=== PATIENT | female | born 1940 | race Caucasian/White ===

== ENCOUNTER 2020-01-28 08:48 | Outpatient (CLI) | payer MEDICARE, SELFPAY ==
--- NOTE | ~2020-01-28 | MR_ITS ---
EXAMINATION: MR cervical spine wo con EXAM DATE: 01/28/2020 10:15 INDICATION: Cervical myelopathy. TECHNIQUE: Multi-sequential, multiplanar MR images of the cervical spine were obtained without contra st. Axial T2, axial T2 MERGE sequence. Sagittal T1, T2, T2 fat saturation images also obtained. Th ere is no prior study for comparison. FINDINGS: There is moderate to severe disc disease C5-6 and 6-7, moderate at C4-5 and otherwise mild to moderate disc disease. There is 2 mm anterolisthesis C7 on T1. The vertebral bodies are otherwise aligned. The spinal cord signal intensity and intrinsic morphology is normal. Cervicomedullary junct ion is normal in appearance. There are no suspicious marrow signal abnormalities. Paraspinal soft tis fady is unremarkable. Level by level evaluation: C2-C3: Disc does not extend beyond the endplate margin. Uncovertebral joint arthropathy: None. Facet joint arthropathy: Moderate left, mild right. Neural foraminal stenosis: No stenosis. Central canal stenosis: No stenosis. C3-C4: There is a minimal diffuse disc bulge. Uncovertebral joint arthropathy: Moderate left, mild right. Facet joint arthropathy: Mild bilateral. Neural foraminal stenosis: No stenosis. Central canal stenosis: No stenosis. C4-C5: There is a mild diffuse disc bulge. Uncovertebral joint arthropathy: Mild to moderate bilateral. Facet joint arthropathy: Moderate right, mild to moderate left. Neural foraminal stenosis: Minimal right. Central canal stenosis: Mild. C5-C6: There is a mild to moderate diffuse disc bulge. Uncovertebral joint arthropathy: Moderate to severe bilateral. Facet joint arthropathy: Mild to moderate bilateral. Neural foraminal stenosis: Moderate to severe bilateral. Central canal stenosis: Mild to moderate . Central canal measures 6-7 mm in mid sagittal AP diameter . C6-C7: There is a mild to moderate diffuse disc bulge. Uncovertebral joint arthropathy: Moderate to severe bilateral. Facet joint arthropathy: Mild to moderate bilateral. Neural foraminal stenosis: Moderate bilateral. Central canal stenosis: Mild to moderate . Central canal measures 6 mm in mid sagittal AP diameter . C7-T1: There is a mild diffuse disc bulge. Uncovertebral joint arthropathy: Moderate bilateral. Facet joint arthropathy: Moderate bilateral. Neural foraminal stenosis: Mild right. Central canal stenosis: Mild. IMPRESSION: 1. Advanced mid cervical spondylosis. Reviewed, dictated and finalized at location B.
== END 2020-01-28 08:49 | disposition home or self-care (01) ==
PROVIDERS: PCP Internal Medicine; Visit Provider Psychiatry & Neurology Neurology
DX: G95.9 Disease of spinal cord, unspecified (principal); M47.892 Other spondylosis, cervical region
CPT/HCPCS: 72141

== ENCOUNTER 2022-03-01 17:32 | Emergency (ER) | payer MEDICARE, SELFPAY ==
--- NOTE | ~2022-03-01 | XR_ITS ---
EXAM: XR knee LT min 4V DATE: 03/01/2022 19:26 HISTORY: fall TODAY, left knee pain, NON-WEIGHT BEARING . COMPARISON: None available. FINDINGS: Decreased mineralization. Obliquely oriented lucency in the medial aspect of the medial ti bial plateau. No lytic or blastic lesion. Mild tricompartment osteoarthritic change. Patellar tendon enthesopathy No erosion or periosteal change. Vascular calcifications. Large joint effusion. IMPRESSION: Nondisplaced medial tibial plateau fracture. Reviewed, dictated and finalized at location K. R [employer] TECHNICIAN
[2022-03-01 18:57] VITALS: BP 122/43; PULSE 73; RESP 14; TEMP 37.1; O2SAT 97
--- NOTE | 2022-03-01 20:27 | ED.FALL ---
HPI - Fall General Chief Complaint: Fall Stated Complaint: fall with left knee pain - patient is covid + Time Seen by Provider: 03/01/22 20:18 History of Present Illness HPI Narrative: 81-year-old female presenting to the emergency department for evaluation after having an injury to her left knee. Patient reports she had a mechanical fall earlier resulting in injury to her knee. Patient did also test positive for COVID. Patient denies striking head denies loss of consciousness. Patient has a past medical history of gait instability and does use a walker at home. Review of Systems Review of Systems: CONSTITUTIONAL: Denies fever, chills, or sweats. EYES: Denies visual changes, redness, or discharge. ENT: Denies rhinorrhea, congestion, sore throat, or otalgia. CARDIOVASCULAR: Denies chest pain, palpitations, or edema. RESPIRATORY: Denies cough or dyspnea. GASTROINTESTINAL: Denies abdominal pain, nausea, vomiting, or diarrhea. GENITOURINARY: Denies dysuria or hematuria. SKIN: Denies rash or itching. MUSCULOSKELETAL: Left knee pain NEUROLOGIC: Denies headache, numbness, or weakness. PSYCHIATRIC: Denies anxiety or depression. Exam Narrative: APPEARANCE: Well appearing, no pain, no distress, well-nourished. HEAD: normocephalic, atraumatic. EYES: PERRLA/EOMI, conjunctivae clear. NOSE: Normal no drainage NECK: Supple. No adenopathy, no masses. RESPIRATORY: Airway patent, respirations nonlabored. Clear to auscultation bilaterally, no rales, rhonchi, wheezing. CARDIOVASCULAR: Regular rate and rhythm without murmurs rubs or gallops. ABDOMINAL: Soft, nontender, nondistended, normal bowel sounds MUSCULOSKELETAL: Moves all extremities. No tenderness to femur or tib-fib. Mild tenderness to left knee. No deformity. NEURO: Alert. Cranial nerves II through XII intact. Grossly intact SKIN: Warm, dry. Normal Color Course Course Emergency Course: Case was discussed with orthopedics, Dr. Luna and he was comfortable with the plan for placing the patient in a knee immobilizer and allowing her to do limited weightbearing while using a walker. Patient and family are comfortable with this plan. All questions and concerns were addressed. Vital Signs Vital signs: Vital Signs Temperature 98.8 F 03/01/22 18:57 Pulse Rate 73 03/01/22 18:57 Respiratory Rate 14 03/01/22 18:57 Blood Pressure 122/43 L 03/01/22 18:57 Pulse Oximetry 97 03/01/22 18:57 Oxygen Delivery Room Air 03/01/22 18:57 Temperature 98.8 F 03/01/22 18:57 Pulse Rate 73 03/01/22 18:57 Respiratory Rate 14 03/01/22 18:57 Blood Pressure 122/43 L 03/01/22 18:57 Pulse Oximetry 97 03/01/22 18:57 Oxygen Delivery Room Air 03/01/22 18:57 MDM - Fall Imaging Data Radiologist's impression: Impressions Knee X-Ray 03/01/22 19:46 IMPRESSION: Nondisplaced medial tibial plateau fracture. Discharge Plan Discharge Clinical Impression: Fracture of tibial plateau Qualifiers: Encounter type: initial encounter Fracture type: closed Laterality: right Qualified Code(s): S82.141A - Displaced bicondylar fracture of right tibia, initial encounter for closed fracture Patient Disposition: Home, Self-Care Condition: Stable Instructions: Antibiotic Form, Leg Fracture in Children (ED), Knee Immobilizer (ED) Additional Instructions: Knee immobilizer as directed. Walker for limited weightbearing. have close follow-up with orthopedics. Follow-up/Referrals: Aguilar,MD Rashel [Primary Care Provider] - Dann Dwyer MD [Physician] -
== END 2022-03-01 21:00 | disposition home or self-care (01) ==
LOC: ANHED 21:08
PROVIDERS: Emergency Provider Emergency Medicine; PCP Internal Medicine
DX: S82.145A Nondisplaced bicondylar fracture of left tibia, initial encounter for closed fracture (principal)
CPT/HCPCS: 73564; 99284

== ENCOUNTER 2023-06-07 20:48 | Emergency (ER) | payer MEDICARE, SELFPAY ==
--- NOTE | ~2023-06-07 | CT_ITS ---
Non-contrast CT scan of the Abdomen and Pelvis Clinical indication: Pain Technique: 2.5 mm axial scans were obtained through the abdomen and pelvis without intravenous or or al contrast. Dose reduction technique was used on this scan by utilizing automated exposure control a nd iterative reconstruction technique. The dose-length product (DLP) was 491.02 mGy-cm. Findings: Images through the lung bases reveal 2 adjacent 4 mm right middle lobe pulmonary nodules ( axial images 14, 18). There are focal groundglass nodules or opacities in the visualized right lower lobe (axial images 1, 4).. There is no evidence of renal or ureteral calculi. The kidneys and the ureters are nondilated. Small left hepatic lobe cyst present. Calcified gallstone present. The spleen, pancreas, and adrenals appear normal. There are atherosclerotic calcifications of the aorta. There is no evidence of bowel obstruction. Images through the pelvis were performed. There is no evidence of ascites or lymphadenopathy. Urinary bladder unremarkable. No pelvic mass seen. No ascites. Impression fracture of L3 and L4 noted, age-indeterminate. Probable mild compression deformity of T10 , likely chronic. Impression: No renal, ureteral, or bladder stone. No hydronephrosis. Compression fractures in the spine, as above. Cholelithiasis. Small right basilar pulmonary nodules, as detailed above. According to Fleischner Society criteria, f or a low-risk patient, no further follow-up required. For a high-risk patient, consider 12 month foll ow-up CT. Reviewed, dictated and finalized at location . [employer] Impression fracture of L3 and L4 noted, age-indeterminate. Probable mild compre ssion deformity of T10, likely chronic. Impression: No renal, ureteral, or bladder stone. No hydronephrosis. Compression fractures in the spine, as above. Cholelithiasis. Small right basilar pulmonary nodules, as detailed above. According to Fleischn er Society criteria, for a low-risk patient, no further follow-up required. For a high-risk patient, consider 12 month follow-up CT.
[2023-06-07 20:51] VITALS: BP 172/55; PULSE 70; RESP 14; TEMP 36.2; O2SAT 100
[2023-06-07 22:14] LABS: Basophils Absolute Auto 0.1 K/mm3 (0.0-0.1); Basophils Percent Auto 0.7 % (0.2-1.2); Eosinophils Absolute Auto 0.2 K/mm3 (0-0.3); Eosinophils Percent Auto 2.8 % (0-4.4); Hematocrit 38.6 % (37.0-47.0); Hemoglobin 12.9 g/dL (12.0-15.0); Immature Granulocyte Absolute 0.01 K/mm3 (0.00-0.031); Immature Granulocyte Percent A 0.1 % (0-0.5); Lymphocytes Absolute Auto 1.69 K/mm3 (0.9-3.2); Lymphocytes Percent Auto 22.6 % (18.3-44.2); Mean Corpuscular HGB Conc 33.4 g/dl (32-36); Mean Corpuscular Hemoglobin 32.1 pg (26-34); Mean Platelet Volume 9.9 fl (7.4-10.4); Monocytes Absolute Auto 0.6 K/mm3 (0.1-0.6); Monocytes Percent Auto 7.8 % (2.6-8.5); Neutrophils Absolute Auto 4.9 K/mm3 (1.3-6.7); Platelet Count Result 234 k/mm3 (150-375); Red Blood Count 4.02 M/mm3 (4.2-5.4); Red Cell Distribution Width 12.3 % (11.5-14.5); White Blood Count 7.5 K/mm3 (4.5-10.0)
[2023-06-07 22:24] LABS: Alanine Aminotransferase 22 U/L (6-35); Albumin Level 3.9 g/dL (3.5-5.1); Alkaline Phosphatase 86 U/L (38-126); Anion Gap 7 mmol/L (8-16); Aspartate Amino Transferase 33 U/L (14-36); Bilirubin,Total 0.4 mg/dL (0.2-1.3); Blood Urea Nitrogen 19 mg/dL (7-17); Calcium 9.5 mg/dL (8.4-10.2); Carbon Dioxide 29 mmol/L (22-30); Chloride 103 mmol/L (98-107); Estimated CRCL calculation 49 ml/min; Estimated Glomerular Filt Rate > 60; Glucose 114 mg/dL (65-110); Magnesium 2.1 mg/dL (1.6-2.3); Potassium 3.7 mmol/L (3.4-5.0); Sodium 139 mmol/L (137-145)
[2023-06-07 22:25] LABS: Lactic Acid Reflex 1.4 mmol/L (0.7-2.0)
--- NOTE | 2023-06-07 23:16 | ED.GENADULT ---
HPI - General Adult General Chief complaint: Back Pain/Injury Stated complaint: back pain Time Seen by Provider: 06/07/23 23:08 Source: patient Mode of arrival: ambulatory Limitations: no limitations History of Present Illness HPI narrative: This is a 83 year old female who presents to the ED with chief complaint of right lower back pain beginning rather suddenly earlier this evening. Patient states that she was just sitting in her chair when she noticed some pain, across the lower back and radiate into the abdomen. When asked about the location she reports all across the lower lumbar area. She does note that it seems to be worse on the right. States that the pain has largely subsided since initial onset. Denies any fall, trauma or known injury. Does report history degeneration of the L-spine but has not had any recent problems with her back. Denies nausea, vomiting, fevers, chills numbness, weakness. Denies any bowel or bladder dysfunction. Related Data Allergies Allergy/AdvReac Type Severity Reaction Status Date / Time No Known Allergies Allergy Verified 06/07/23 20:53 Review of Systems Review of Systems: All systems as dictated in HPI Exam Narrative: GENERAL: Well-appearing, well-nourished, and in no acute distress. HEAD: Normocephalic, atraumatic. EYES: PERRLA and EOMI. ENT: Nares clear, no rhinorrhea or epistaxis. Mucous membranes moist. Oropharynx without tonsillar hypertrophy exudate or other lesions. NECK: Supple. No adenopathy or masses. CHEST: No respiratory distress. Clear to auscultation. No wheezes rales or rhonchi HEART: Regular rate and rhythm. No murmur heard. Normal peripheral pulses. ABDOMEN: Negative CVA tenderness bilaterally. soft, grossly nontender, nondistended, normal active bowel sounds. MSK: Focal tenderness to the lumbar paraspinal muscles on the right. No midline spinal tenderness. No SI joint tenderness. Ambulating with Rollator at baseline. normal range of motion. No edema. SKIN: Warm, dry, no rash. NEURO: Alert and oriented x3. No focal deficits. PSYCH: Normal mood and affect. Course Vital Signs Vital signs: Vital Signs Temperature 97.1 F L 06/07/23 20:51 Pulse Rate 70 06/07/23 20:51 Respiratory Rate 14 06/07/23 20:51 Blood Pressure 172/55 H 06/07/23 20:51 Pulse Oximetry 100 06/07/23 20:51 Oxygen Delivery Room Air 06/07/23 20:51 Temperature 97.1 F L 06/07/23 20:51 Pulse Rate 70 06/07/23 20:51 Respiratory Rate 14 06/07/23 20:51 Blood Pressure 172/55 H 06/07/23 20:51 Pulse Oximetry 100 06/07/23 20:51 Oxygen Delivery Room Air 06/07/23 20:51 Medical Decision Making MDM Narrative Medical decision making narrative: This is a 83-year-old female who presents to the ED with chief complaint of right lower back pain sudden onset tonight. There was some radiation of pain into the abdomen. Vitals are normal. Exam today reveals right lower lumbar paraspinal tenderness. There is minimal CVA tenderness. Lab work grossly unremarkable. There is evidence of acute UTI with nitrite positive urine, also showing 3+ leuks, greater than 100 wbc's, 4+ bacteria. With the questionable flank pain CT scan was ordered to rule out stone. No acute findings on the CT abdomen and pelvis without contrast. Patient feels rather asymptomatic here. She did note some dysuria before she was discharged. Prescription for cephalexin given. Follow-up with PCP. Pt will be discharged in stable condition. Return precautions given and supportive measures discussed. Pt is understanding and agreeable with plan for discharge and follow-up with PCP. Vital Signs Vital Signs: Vital Signs Temperature 97.1 F L 06/07/23 20:51 Pulse Rate 70 06/07/23 20:51 Respiratory Rate 14 06/07/23 20:51 Blood Pressure 172/55 H 06/07/23 20:51 Pulse Oximetry 100 06/07/23 20:51 Oxygen Delivery Room Air 06/07/23 20:51 Temperature 97.1 F L 06/07/23 20:51 Pul
[2023-06-07 23:45] LABS: Appearance Urine Cloudy (Clear); Bacteria Urine 4+ /hpf; Bilirubin Urine Negative (Negative); Blood Urine Trace (Negative); Color Urine Yellow (Yellow); Glucose Urine UA Negative (Negative); Ketones Urine Negative (Negative); Leukocyte Esterase Ur 3+ LEU/UL (Negative); Nitrate Urine Positive (Negative); Non Pathogenic Casts 0-2; Protein Urine Negative (Negative); RBC Urine 0-2 /hpf (0-2); Specific Grav Ur 1.014 (1.001-1.035); Squamous Epithelial Cell Urine None seen /hpf (Few); Urobilinogen Urine 0.2 mg/dL (<2.0); WBC Urine >100 /hpf; pH Urine 5.5 (5.0-9.0)
[2023-06-07 23:57] LABS: Add Urine Microscopic? YES
--- NOTE | 2023-06-08 01:35 | PC.NURSE ---
ON 06/08/2023 AT 0135 THIS RN ADMINISTERED 500 MG KEFLEX PO ORDERED BY Jacques CANCINO PA-C ON PAPER ORDER DURING EMR DOWNTIME. PT SWALLOWED PILL WITH WATER WITHOUT DIFFICULTY.
== END 2023-06-08 03:13 | disposition home or self-care (01) ==
LOC: ANHED 23:44
PROVIDERS: Emergency Medicine; Emergency Provider Physician Assistant; PCP Internal Medicine
DX: N39.0 Urinary tract infection, site not specified (principal)
CPT/HCPCS: 36415; 74176; 80053; 81001; 83605; 83735; 85025; 87077; 87086; 87186; 99284; A9270